=== PATIENT | male | born 1980 | race Caucasian/White ===

== ENCOUNTER → 2019-06-04 | Day surgery (SDC) | payer BC ==
[~2019-06-04] MED LIST: DULO20CA PO; IV RINGERS,LACTATED 1000ML 1,000 ML IV SCH; LIDOCAINE 2% PF 5 ML VIAL. ONE; PRAZ5CAP2 PO; PROPOFOL 40 ML IV ONE; RISP4TAB2 PO
[2019-06-04 09:52] VITALS: BP 131/85
--- NOTE | 2019-06-04 10:47 | CONS ---
DATE OF CONSULTATION: 06/04/2019 REFERRING PHYSICIAN: Cornelius Pavon MD REASON: Family history of colon cancer. HISTORY OF PRESENT ILLNESS: A 38-year-old male with past medical history significant for hyperlipidemia, depression, is seen for interval colonoscopy. Family history is positive for colon cancer with his father and grandfather. Bowel habits have been regular without diarrhea or constipation. Weight and appetite are stable. There has been no melena and/or hematochezia, is otherwise without additional history. PAST MEDICAL HISTORY: Hyperlipidemia, depression. ALLERGIES: None. MEDICATIONS: Include Cymbalta, prazosin and risperidone. FAMILY HISTORY: Breast cancer with his mother. Colon cancer with father and grandfather, diabetes with grandfather. Hypertension with father. SOCIAL HISTORY: Social drinker and smoker. PAST SURGICAL HISTORY: Hernia repair. REVIEW OF SYSTEMS: Per records. PHYSICAL EXAMINATION: GENERAL: Reveals a well-nourished, well-developed male. VITAL SIGNS: Temperature is 98, pulse 101, respiratory rate 16. HEENT: Normocephalic, atraumatic head. Pupils and extraocular muscles are not tested. Sclerae anicteric. NECK: Supple. LUNGS: Clear. CARDIOVASCULAR: Reveals an S1, S2 without S3, S4 or appreciable murmur. ABDOMEN: Reveals a soft abdomen, normal bowel sounds, without appreciable hepatosplenomegaly. EXTREMITIES: Reveals no cyanosis, clubbing or edema. IMPRESSION: Family history of colon cancer. Interval colonoscopy is recommended. Risks and benefits have been previously discussed. The patient is willing to proceed. YUAN PINZON MD DR: REFUGIO/hiro JOB#: [id number] / [id number]
== END ==
LOC: SURG 08:31
PROVIDERS: ATTEND Internal Medicine Gastroenterology
DX: Z12.11 Encounter for screening for malignant neoplasm of colon (principal); K64.0 First degree hemorrhoids; K63.89 Other specified diseases of intestine; F17.210 Nicotine dependence, cigarettes, uncomplicated; E78.5 Hyperlipidemia, unspecified; F32.9 Major depressive disorder, single episode, unspecified; Z72.89 Other problems related to lifestyle
CPT/HCPCS: 45378; J2001; J2704